=== PATIENT | male | born 1940 | race Two or more races ===

== ENCOUNTER 2017-02-10 06:07 | Inpatient (IN) | payer OTHER ==
[~2017-02-10] VITALS: Ht 170.2 cm; Wt 91.2 kg
[~2017-02-10 06:07] MED LIST: COZAAR PO; Glucophage PO; SYNTHROID50 MCG; Synthroid PO; TOPROL XL100 MG; Toprol Xl 50MG TAB PO
[2017-02-14] MEDS ORDERED: PROTONIX40 MG PO (13:17)
[2017-02-14] MEDS ORDERED: Neurin-Sl Tablet Sl SL (13:17)
[2017-02-14] MEDS ORDERED: INTEGRA PLUS C1 EACH PO (13:17)
[2017-02-14] MEDS ORDERED: SIMVASTATIN20 MG PO (13:17)
[2017-02-14] MEDS ORDERED: OXYC1TAB9 PO (13:17)
[2017-02-14] MEDS ORDERED: TOPROL XL50 M1 PO (13:17)
[2017-02-14] MEDS ORDERED: LEVOTHYROXINE125 MCG PO (13:17)
[2017-02-14] MEDS ORDERED: SUCRALFATE1 GM/10 ML PO (13:17)
[2017-02-14] MEDS ORDERED: NAMENDA5 MG PO (13:17)
== END 2017-02-14 14:12 | disposition home or self-care (01) | DRG 378 ==
LOC: ER 06:07 → MEDJ 19:51 → MEDI 19:51 → MEDJ 20:38
PROC: 30233N1 Transfusion of Nonautologous Red Blood Cells into Peripheral Vein, Percutaneous Approach (ICD-10-PCS; 2017-02-10)
PROC: B020ZZZ Computerized Tomography (CT Scan) of Brain (ICD-10-PCS; 2017-02-10)
PROC: BW21Y0Z Computerized Tomography (CT Scan) of Abdomen and Pelvis using Other Contrast, Unenhanced and Enhanced (ICD-10-PCS; 2017-02-10)
PROC: 4A12X4Z Monitoring of Cardiac Electrical Activity, External Approach (ICD-10-PCS; 2017-02-10)
PROC: 0DJ08ZZ Inspection of Upper Intestinal Tract, Via Natural or Artificial Opening Endoscopic (ICD-10-PCS; principal; 2017-02-14)
DX: K92.1 Melena (principal); N17.8 Other acute kidney failure; D50.0 Iron deficiency anemia secondary to blood loss (chronic); R55 Syncope and collapse; I48.0 Paroxysmal atrial fibrillation; Z79.01 Long term (current) use of anticoagulants; E11.65 Type 2 diabetes mellitus with hyperglycemia; K25.9 Gastric ulcer, unspecified as acute or chronic, without hemorrhage or perforation; M10.09 Idiopathic gout, multiple sites; E89.0 Postprocedural hypothyroidism

== ENCOUNTER → 2017-02-14 | Emergency (ER) | payer OTHER ==
[~2017-02-14] VITALS: Ht 175.3 cm; Wt 88.0 kg
[~2017-02-14] MED LIST changes: +INTEGRA PLUS C1 EACH PO; +LEVOTHYROXINE125 MCG PO; +NAMENDA5 MG PO; +Neurin-Sl Tablet Sl SL; +OXYC1TAB9 PO; +PROTONIX40 MG PO; +SIMVASTATIN20 MG PO; +SUCRALFATE1 GM/10 ML PO; +TOPROL XL50 M1 PO
== END | disposition home or self-care (01) ==
LOC: ER 20:14
DX: R42 Dizziness and giddiness (principal); T50.994A Poisoning by other drugs, medicaments and biological substances, undetermined, initial encounter; Y92.89 Other specified places as the place of occurrence of the external cause